=== PATIENT | female | born 1990 | race Caucasian/White ===

== ENCOUNTER 2016-12-08 18:26 | Emergency (ER) | payer MEDICAID ==
[2016-12-08] MEDS ORDERED: KETOROLAC 60 MG/2 ML VIAL IM ONE (20:59)
[2016-12-08] MEDS ORDERED: DIPHENHYDRAMINE 25 MG CAP ONE (21:44)
== END 2016-12-08 22:28 | disposition home or self-care (01) ==
LOC: ER 18:26
DX: R52 Pain, unspecified (principal); F17.210 Nicotine dependence, cigarettes, uncomplicated
CPT/HCPCS: 36415; 80053; 81003; 83690; 84703; 85025; 96372